=== PATIENT | female | born 1970 | race American Indian/Alaskan Native ===

== ENCOUNTER 2021-05-25 21:16 | Emergency (ER) | payer SELFPAY ==
[2021-05-26 01:10] VITALS: BP 171/86
--- NOTE | 2021-05-26 01:47 | XRay Report ---
LEFT HIP AND PELVIS 3 VIEWS LEFT KNEE 3 VIEWS INDICATION: Left hip and left knee pain after fall. COMPARISON: No relevant prior imaging study available. FINDINGS: Left hip/pelvis: No acute skeletal abnormality. Mild osteoarthrosis changes are noted at the hips. Left knee: No acute, displaced fracture or dislocation is seen. Moderate to advanced osteoarthrosis c hanges are noted. There is a small joint effusion. IMPRESSION: 1. No acute fracture. Signer Name: Miguel Solis MD Signed: 05/26/2021 1:42 AM Workstation Name: [id number]
[2021-05-26] MEDS ORDERED: ACETAMINOPHEN 500 MG TAB PO ONE (02:08)
[2021-05-26] MEDS ORDERED: IBUPROFEN 600 MG TAB PO ONE (02:08)
--- NOTE | 2021-05-26 02:21 | Emergency Department Report ---
ED Fall HPI - General Chief Complaint: Fall Stated Complaint: SLIP AND FALL Source: patient Mode of arrival: Ambulatory - History of Present Illness Initial Comments: Patient is a 50-year-old -H[place] female with a history of morbid obesity and chronic osteoarthritis who presents to the ED with complaint of acute onset persistent severe left knee and left hip pain after she slipped at home and fell down landing on the left knee and left thigh about 6 hours ago. Patient states that the pain has been persistent and constant and especially worse with movement. Patient denies head or neck injuries, back pain, chest pain, shortness of breath, dizziness, syncope, seizures, numbness and tingling or weakness of upper and lower extremities bilaterally, nausea and vomiting. MD Complaint: fall -: Sudden, hour(s) (6) Fall From: standing When Fall Occurred: 4-6 hours PROJECT COORDIN[employer] Fall Witnessed: yes, by family Place Fall Occurred: home Loss of Consciousness: none Prolonged Down Time?: no Symptoms Prior to Fall: none Location: other (Left hip and knee pain) Location - Extremities: Left: Thigh (Left hip and thigh pain), Knee (Pain) Severity: severe Severity scale (0 -10): 8 Quality: sharp, aching Context: tripped/slipped Associated Symptoms: denies. denies: headache, neck pain, numbness, weakness, chest paint, shortness of breath, abdominal pain, hematuria, unable to walk, lightheaded, vertigo, confusion - Related Data Previous Rx's Medication Instructions Recorded Last Taken Type Baclofen 20 mg PO Q12H PRN #20 tablet 05/26/21 Unknown Rx Ibuprofen [Motrin] 800 mg PO Q8HR PRN #30 tablet 05/26/21 Unknown Rx traMADoL [Ultram] 50 mg PO Q6HR PRN #12 tablet 05/26/21 Unknown Rx Allergies Allergy/AdvReac Type Severity Reaction Status Date / Time No Known Allergies Allergy Unverified 05/26/21 01:11 ED Review of Systems ROS: Stated complaint: SLIP AND FALL Other details as noted in HPI Constitutional: denies: chills, fever Eyes: denies: eye pain, eye discharge, vision change ENT: denies: ear pain, throat pain Respiratory: denies: cough, shortness of breath, wheezing Cardiovascular: denies: chest pain, palpitations Endocrine: no symptoms reported Gastrointestinal: denies: abdominal pain, nausea, diarrhea Genitourinary: denies: urgency, dysuria, frequency, hematuria, discharge Musculoskeletal: arthralgia (Left knee, thigh and hip pain). denies: back pain, joint swelling, myalgia Skin: denies: rash, lesions Neurological: denies: headache, weakness, paresthesias Psychiatric: denies: anxiety, depression Hematological/Lymphatic: denies: easy bleeding, easy bruising ED Past Medical Hx - Medications Home Medications: Home Medications Medication Instructions Recorded Confirmed Last Taken Type Baclofen 20 mg PO Q12H PRN #20 tablet 05/26/21 Unknown Rx Ibuprofen [Motrin] 800 mg PO Q8HR PRN #30 tablet 05/26/21 Unknown Rx traMADoL [Ultram] 50 mg PO Q6HR PRN #12 tablet 05/26/21 Unknown Rx ED Physical Exam - General Limitations: No Limitations General appearance: alert, in no apparent distress - Head Head exam: Present: atraumatic, normocephalic, normal inspection - Eye Eye exam: Present: normal appearance, PERRL, EOMI Pupils: Present: normal accommodation - ENT ENT exam: Present: normal exam, normal orophraynx, mucous membranes moist, TM's normal bilaterally, normal external ear exam - Neck Neck exam: Present: normal inspection, full ROM. Absent: tenderness - Respiratory Respiratory exam: Present: normal lung sounds bilaterally. Absent: respiratory distress, wheezes, rales, rhonchi, chest wall tenderness, accessory muscle use, decreased breath sounds, prolonged expiratory - Cardiovascular Cardiovascular Exam: Present: regular rate, normal rhythm, normal heart sounds. Absent: systolic murmur, diastolic murmur, rubs, gallop - GI/Abdominal GI/Abdominal exam: Present: soft, normal bowel sounds. Absent: tenderness, guarding, rebound, hyperactive bowel sounds, organomegaly, mass - Extremities Exam Extremities exam: Present: normal inspection, full ROM, tenderness (Palpable left hip and left knee tenderness), normal capillary refill. Absent: pedal edema, joint swelling, calf tenderness - Back Exam Back exam: Present: normal inspection, full ROM. Absent: tenderness, CVA tenderness (R), CVA tenderness (L), muscle spasm, paraspinal tenderness - Neurological Exam Neurological exam: Present: alert, oriented X3, CN II-XII intact, normal gait, reflexes normal - Psychiatric Psychiatric exam: Present: normal affect, normal mood - Skin Skin exam: Present: warm, dry, intact, normal color. Absent: rash ED Course Vital Signs 05/26/21 01:09 Temperature 98.2 F Pulse Rate 88 Respiratory 16 Rate Blood Pressure 171/86 [Right] O2 Sat by Pulse 99 Oximetry ED Medical Decision Making - Radiology Data Radiology results: report reviewed, image reviewed [facility] [address] [place] [address] XRay Report Signed Patient: PAUL RENO MR#: [id number] : 1970 Acct:[id number] Age/Sex: 50 / F ADM Date: 05/25/21 Loc: ED Attending Dr: Ordering Physician: NASIR EMANUEL Date of Service: 05/26/21 Procedure(s): XR knee 3V LT Accession Number(s): [id number] cc: NASIR EMANUEL Fluoro Time In Minutes: LEFT HIP AND PELVIS 3 VIEWS LEFT KNEE 3 VIEWS INDICATION: Left hip and left knee pain after fall. COMPARISON: No relevant prior imaging study available. FINDINGS: Left hip/pelvis: No acute skeletal abnormality. Mild osteoarthrosis changes are noted at the hips. Left knee: No acute, displaced fracture or dislocation is seen. Moderate to advanced osteoarthrosis changes are noted. There is a small joint effusion. IMPRESSION: 1. No acute fracture. Signer Name: Miguel Solis MD Signed: 05/26/2021 1:42 AM Workstation Name: [id number] Transcribed By: MEAGAN Dictated By: Miguel Solis MD Electronically Authenticated By: Miguel Solis MD Signed Date/Time: 05/26/21141 DD/ 0 TD/TT: [facility] [address] [place] [id number] XRay Report Signed Patient: PAUL RENO MR#: [id number] : 1970 Acct:[id number] Age/Sex: 50 / F ADM Date: 05/25/21 Loc: ED Attending Dr: Ordering Physician: NASIR EMANUEL Date of Service: 05/26/21 Procedure(s): XR hip 2-3V LT Accession Number(s): [id number] cc: NASIR EMANUEL Fluoro Time In Minutes: LEFT HIP AND PELVIS 3 VIEWS LEFT KNEE 3 VIEWS INDICATION: Left hip and left knee pain after fall. COMPARISON: No relevant prior imaging study available. FINDINGS: Left hip/pelvis: No acute skeletal abnormality. Mild osteoarthrosis changes are noted at the hips. Left knee: No acute, displaced fracture or dislocation is seen. Moderate to advanced osteoarthrosis changes are noted. There is a small joint effusion. IMPRESSION: 1. No acute fracture. Signer Name: Miguel Solis MD Signed: 05/26/2021 1:42 AM Workstation Name: [id number] Transcribed By: SW Dictated By: Miguel Solis MD Electronically Authenticated By: Miguel Solis MD Signed Date/Time: 05/26/21141 DD/ 0 TD/TT: [facility] [address] [place] [id number] XRay Report Signed Patient: PAUL RENO MR#: [id number] : 1970 Acct:[id number] Age/Sex: 50 / F ADM Date: 05/25/21 Loc: ED Attending Dr: Ordering Physician: NASIR EMANUEL Date of Service: 05/26/21 Procedure(s): XR hip 2-3V LT Accession Number(s): [id number] cc: NASIR EMANUEL Fluoro Time In Minutes: LEFT HIP AND PELVIS 3 VIEWS LEFT KNEE 3 VIEWS INDICATION: Left hip and left knee pain after fall. COMPARISON: No relevant prior imaging study available. FINDINGS: Left hip/pelvis: No acute skeletal abnormality. Mild osteoarthrosis changes are noted at the hips. Left knee: No acute, displaced fracture or dislocation is seen. Moderate to advanced osteoarthrosis changes are noted. There is a small joint effusion. IMPRESSION: 1. No acute fracture. Signer Name: Miguel Solis MD Signed: 05/26/2021 1:42 AM Workstation Name: [id number] Transcribed By: SW Dictated By: Miguel Solis MD Electronically Authenticated By: Miguel Solis MD Signed Date/Time: 05/26/21141 DD/ 0 TD/TT: - Medical Decision Making This is a 50-year-old -[place] female with a history of morbid obesity and chronic osteoarthritis who presents to the ED with complaint of acute onset persistent severe left knee and left hip pain after she slipped at home and fell down landing on the left knee and left thigh about 6 hours ago. Patient states that the pain has been persistent and constant and especially worse with movement. In the ED, patient is alert and oriented x3 and is not in any distress. Patient was treated for pain in the ED and left hip and knee x-rays showed no acute fractures or subluxations. There was however some degenerative joint changes consistent with mild osteoarthritis in both the left hip and the left knee joints. On reevaluation, patient's pain is well controlled medications. Patient will discharge home on pain medications and was advised to follow-up with her primary care physician in 7 to 10 days for reevaluation or return to the ED immediately if symptoms get worse. - Differential Diagnosis Hip fracture; knee fracture; hip contusion; leg contusion Critical care attestation.: If time is entered above; I have spent that time in minutes in the direct care of this critically ill patient, excluding procedure time. ED Disposition Clinical Impression: Contusion of left lower leg, initial encounter Sprain of left hip Qualifiers: Encounter type: initial encounter Qualified Code(s): S73.102A - Unspecified sprain of left hip, initial encounter Sprain of left knee/leg Qualifiers: Encounter type: initial encounter Qualified Code(s): S83.92XA - Sprain of unspecified site of left knee, initial encounter Disposition: HOME / SELF CARE / HOMELESS Is pt being admited?: No Does the pt Need Aspirin: No Condition: Stable Instructions: Knee Sprain, Adult, [id number], Contusion, [id number], Hip Sprain Additional Instructions: The left hip and left knee x-rays showed no acute fractures or subluxations but degenerative joint changes consistent with chronic osteoarthritis. Therefore take pain medications and muscle relaxants with food as needed for pain. Follow-up with your primary care physician in 7 to 10 days for reevaluation. Return to the ED immediately if symptoms get worse. Prescriptions: Baclofen 20 mg PO Q12H PRN #20 tablet PRN Reason: Muscle Spasm Ibuprofen [Motrin] 800 mg PO Q8HR PRN #30 tablet PRN Reason: Pain , Severe (7-10) traMADoL [Ultram] 50 mg PO Q6HR PRN #12 tablet PRN Reason: Pain Referrals: [facility] [Provider Group] - 3-5 Days Forms: Work/School Release Form(ED) Time of Disposition: 02:19 Print Language: KOREAN
== END 2021-05-26 02:40 | disposition home or self-care (01) ==
LOC: ED 21:16
DX: S73.102A Unspecified sprain of left hip, initial encounter (principal); S83.92XA Sprain of unspecified site of left knee, initial encounter; S80.12XA Contusion of left lower leg, initial encounter; Z79.899 Other long term (current) drug therapy; W18.30XA Fall on same level, unspecified, initial encounter; Y93.89 Activity, other specified; Y92.099 Unspecified place in other non-institutional residence as the place of occurrence of the external cause; Y99.8 Other external cause status